=== PATIENT | female | born 1975 | race Caucasian/White ===

== ENCOUNTER 2018-03-31 10:22 | Outpatient (CLI) | payer MEDICAID, SELFPAY ==
[2018-03-31 10:40] LABS: Abs Immature Grans 0.01 k/cumm (0.0-0.09); Absolute Basophil Count 0.02 k/cumm (0.0-0.2); Absolute Eosinophil Count 0.18 k/cumm (0.0-0.7); Absolute Lymphocyte Count 0.61 k/cumm (1.2-3.4); Absolute Monocyte Count 0.33 k/cumm (0.11-0.7); Absolute Neutrophil Count 2.65 k/cumm (1.2-6.7); Basophils % 0.5; Eosinophils % 4.7; HCT 36.5 % (36.0-46.0); HGB 12.3 g/dL (12.0-15.5); Immature Grans % 0.3; Lymphocytes % 16.1; Mean Corp. HGB Concentration 33.7 g/dL (32.0-36.0); Mean Corpuscular Hemoglobin 35.2 pg (27.0-33.0); Mean Corpuscular Volume 104.6 fL (80-95); Mean Platelet Volume 9.1 fL (8.0-11.0); Monocytes % 8.7; Neutrophils % 69.7; Platelet Count 184 x1000/uL (130-400); RBC 3.49 m/cumm (4.00-5.20); RBC Distribution Width 14.3 % (11.7-14.6)
[2018-03-31 11:08] LABS: ALT 81 U/L (12-78); AST 39 U/L (15-37); Albumin 3.8 g/dL (3.4-5.0); Alkaline Phosphatase 64 U/L (46-116); BUN 16 mg/dL (7-18); Bilirubin, Total 0.2 mg/dL (0.2-1.0); CREATININE 0.84 mg/dL (0.55-1.02); Chloride 106 mmol/L (98-107); Glucose 119 mg/dL (70-100); Potassium 4.1 mmol/L (3.5-5.1); Sodium 143 mmol/L (136-145); Total Protein 6.9 g/dL (6.4-8.2)
== END 2018-03-31 10:42 ==
PROVIDERS: Visit Provider Internal Medicine Medical Oncology
DX: C53.1 Malignant neoplasm of exocervix (principal)
CPT/HCPCS: 36415; 80053; 85025